=== PATIENT | female | born 1950 | race Hispanic/Latino ===

== ENCOUNTER 2017-11-07 08:36 | Outpatient (CLI) | payer MEDICARE | END 2017-11-07 08:37 | disposition home or self-care (01) | LOC: BICMAMMO 08:36 | PROVIDERS: ATTEND Family Medicine | DX: Z12.31 Encounter for screening mammogram for malignant neoplasm of breast (principal) | CPT/HCPCS: 77063; 77067 ==

== ENCOUNTER 2018-09-20 10:50 | Outpatient (CLI) | payer MEDICARE ==
[~2018-09-20 10:50] MED LIST: Iopamidol 370 76% 100 ML VIAL ONE
--- NOTE | 2018-09-20 11:54 | CT ---
CT ABDOMEN PELVIS WITH ORAL AND IV CONTRAST: HISTORY: Left quadrant pain FINDINGS: The lung bases are clear. The liver, pancreas, adrenal glands appear normal. There are cysts in the k idneys. A small cyst is seen in the spleen. No free air, free fluid or lymphadenopathy is noted in the abdomen or pelvis. No calcified gallstones are seen. The small bowel loops are not abnormally dilated. There is fecal material in the colon. A normal-appe aring appendix is seen. There is colonic diverticulosis without evidence of diverticulitis. No abnormally loculated fluid collection is noted to suggest abscess formation. Uterus is present. There are vascular calcifications without evidence of aneurysmal dilatation of the abdominal aorta. D egenerative changes are seen in the spine. IMPRESSION: 1. Colonic diverticulosis without evidence of diverticulitis. 2. Cysts in the kidneys and spleen.
== END 2018-09-20 10:51 | disposition home or self-care (01) ==
LOC: SCSCT 10:50
PROVIDERS: ATTEND Family Medicine
DX: R10.32 Left lower quadrant pain (principal); N28.1 Cyst of kidney, acquired; D73.4 Cyst of spleen; K57.30 Diverticulosis of large intestine without perforation or abscess without bleeding
CPT/HCPCS: 74177; Q9967

== ENCOUNTER 2018-11-08 08:47 | Outpatient (CLI) | payer MEDICARE ==
--- NOTE | 2018-11-08 09:42 | MMO ---
Bilateral MAMMO Bilat Screen [facility]. CLINICAL HISTORY: Patient is 68 years old and is seen for screening. The patient has no family history of breast cancer. The patient has no personal history of cancer. VIEWS: The views performed were: bilateral craniocaudal with tomosynthesis and bilateral mediolateral oblique with tomosynthesis. FILMS COMPARED: The present examination has been compared to prior imaging studies performed at on 10/06/2016 and 11/07/2017. MAMMOGRAM FINDINGS: There are scattered fibroglandular densities. There are stable benign appearing calcifications seen in both breasts. There are no suspicious masses, suspicious calcifications, or new areas of architectural distortion. IMPRESSION: THERE IS NO MAMMOGRAPHIC EVIDENCE OF MALIGNANCY. A ROUTINE FOLLOW-UP MAMMOGRAM IN 1 YEAR IS RECOMMENDED. THE RESULTS OF THIS EXAM WERE SENT TO THE PATIENT. ACR BI-RADS Category 2 - Benign finding MAMMOGRAPHY NOTE: 1. A negative mammogram report should not delay a biopsy if a dominant of clinically suspicious mass is present. 2. Approximately 10% to 15% of breast cancers are not detected by mammography. 3. Adenosis and dense breasts may obscure an underlying neoplasm. Reported by: KRISTINE SIMON MD Electonically Signed: [id number]
--- NOTE | 2018-11-08 10:09 | BD ---
DEXA BONE DENSITY SCAN: Date: 11/08/2018 COMPARISON: None. HISTORY: Postmenopausal female undergoing screening for osteoporosis. FINDINGS: Lumbar Spine BMD (g/cm2) L1 0.863 T-Score -1.2 L2 0.893 T-Score -1.2 L3 1.027 T-Score -0.5 L4 1.037 T-Score -0.2 L1-L4 0.965 T-Score -0.7 Femoral Neck 0.668 T-Score -1.6 Total Femur 0.917 T-Score -0.2 The FRAX-WHO fracture risk assessment tool was not reported as the patient is reportedly being treate d for osteoporosis IMPRESSION: 1. Overall normal lumbar spine bone mineral density. 2. Osteopenia within the femoral neck, correlating with a moderately increased risk for fracture. Transcribed Date/Time: 11/08/2018 10:15 AM
== END 2018-11-08 08:48 | disposition home or self-care (01) ==
LOC: BICMAMMO 08:47
PROVIDERS: ATTEND Family Medicine
DX: Z12.31 Encounter for screening mammogram for malignant neoplasm of breast (principal); Z13.820 Encounter for screening for osteoporosis; M85.859 Other specified disorders of bone density and structure, unspecified thigh; Z78.0 Asymptomatic menopausal state
CPT/HCPCS: 77063; 77067; 77080

== ENCOUNTER 2020-05-12 10:27 | Emergency (ER) | payer MEDICARE ==
[2020-05-12] MEDS ORDERED: Ondansetron ODT 4 MG TAB ONE (10:53)
[2020-05-12 11:23] LABS: #Basophils 0.1 thou/uL (0.0-0.2); #Eosinphils 0.2 thou/uL (0.0-0.7); #Lymphocytes 3.4 thou/uL (1.20-3.40); #Monocytes 0.6 thou/uL (0.11-0.59); #Neutrophils 5.5 thou/uL (1.40-6.50); %Eosinophils 2.4 % (0.0-10.0); %Lymphocytes 34.6 % (21.0-51.0); %Monocytes 6.2 % (0.0-10.0); %Neutrophils 55.9 % (42.0-75.0); Hemoglobin 13.2 g/dL (12.0-16.0); Mean Corpuscular HGB CONC 32.1 g/dL (32.0-36.0); Mean Corpuscular Hemoglobin 30.1 pg (27.0-31.0); Mean Corpuscular Volume 93.7 fL (78.0-98.0); Mean Platelet Volume 7.5 fL (7.4-10.4); Platelet Count 243 thou/uL (130-400); RBC Distribution Width 12.2 % (11.5-14.5); Red Blood Cell (RBC) Count 4.38 mill/uL (4.20-5.40); White Blood Cell (WBC) Count 9.8 thou/uL (4.8-10.8)
[2020-05-12] MEDS ORDERED: Meclizine HCl 25 MG TAB ONE (11:24)
[2020-05-12] MEDS ORDERED: Promethazine HCl 25 MG/ML VIAL ONE (11:32)
[2020-05-12 11:53] LABS: ALT (SGPT) 17 U/L (8-55); AST (SGOT) 20 U/L (5-34); Albumin 4.4 g/dL (3.4-4.8); Alkaline Phosphatase 64 U/L (40-110); Anion Gap 20 mmol/L (10-20); BUN (Urea Nitrogen) 18 mg/dL (9.8-20.1); Bilirubin, Total 0.5 mg/dL (0.2-1.2); Calc. Creatinine Clearance 0 mL/min (70-130); Calcium 9.7 mg/dL (7.8-10.44); Carbon Dioxide 23 mmol/L (23-31); Chloride 102 mmol/L (98-107); Globulin 3.3 g/dL (2.4-3.5); Glucose 192 mg/dL (80-115); Potassium 3.7 mmol/L (3.5-5.1); Protein, Total 7.7 g/dL (6.0-8.3); Sodium 141 mmol/L (136-145)
--- NOTE | 2020-05-12 11:59 | CT ---
CT Brain WO Con: 05/12/2020 11:37 AM CLINICAL HISTORY: Nausea vomiting for 1 hour and dizziness. IMAGING TECHNIQUE: Multiple CT images were obtained of the brain without IV contrast. COMPARISON: None. FINDINGS: BRAIN: Evidence of acute infarct: None. Evidence of chronic ischemic change:Mild chronic small vessel white matter ischemic change. Evidence of intracranial hemorrhage: None. Evidence of brain volume loss:None. Evidence of midline shift: Third ventricle and septum pellucidum are midline. Ventricles: Normal. No hydrocephalus. SKULL: Intact. VISUALIZED PARANASAL SINUSES: Clear. MASTOID AIR CELLS: Clear. EXTRACRANIAL SOFT TISSUES: Normal. IMPRESSION: No acute intracranial abnormality.
[2020-05-12 13:09] LABS: Bilirubin Negative (Negative); Blood, Urine Negative (Negative); Clarity Clear (Clear); Glucose, Urine (Dipstick) Normal (Negative); Ketone, Urine 10 mg/dL (Negative); Leukocyte Negative Leu/uL (Negative); Nitrite Negative (Negative); Protein, Urine (Dipstick) Negative (Neg-Trace); Specific Gravity, Urine 1.007 (1.002-1.036); Urobilinogen Normal mg/dL (Less than 2)
--- NOTE | 2020-05-30 21:51 | EKG ---
Test Reason : N/V Blood Pressure : / mmHG Vent. Rate : 059 BPM Atrial Rate : 059 BPM P-R Int : 162 ms QRS Dur : 080 ms QT Int : 502 ms P-R-T Axes : 052 -13 003 degrees QTc Int : 496 ms Sinus bradycardia Prolonged QT Abnormal ECG Confirmed by MIESHA TOVAR DO ([id number]), editor department GARCIA NORWOOD ([id number]) on 05/30/2020 9:51:18 PM Referred By: Confirmed By:MIESHA TOVAR DO
== END 2020-05-12 13:55 | disposition home or self-care (01) ==
LOC: ERS 10:27
DX: R42 Dizziness and giddiness (principal); R11.2 Nausea with vomiting, unspecified; E11.9 Type 2 diabetes mellitus without complications; E78.00 Pure hypercholesterolemia, unspecified; Z79.84 Long term (current) use of oral hypoglycemic drugs; Z79.899 Other long term (current) drug therapy
CPT/HCPCS: 70450; 80053; 81003; 84484; 85025; 93005; 96374; J2550; Q0162